=== PATIENT | female | born 2000 | race Caucasian/White ===

== ENCOUNTER 2022-03-04 21:39 | Emergency (ER) | payer OTHER, SELFPAY ==
[2022-03-04 22:28] VITALS: BP 94/64; PULSE 82; RESP 18; TEMP 36.6; O2SAT 99
--- NOTE | 2022-03-04 23:35 | PC.NURSE ---
Patient approached triage desk and informed the RNs that she no longer wanted to be seen and that she was feeling better. Patient encouraged to stay for evaluation but declines. Encourged to returned if symptoms return or worsen. PIV removed and pressure dressing applied prior to dc.
== END 2022-03-04 23:35 | disposition left against medical advice (07) ==
LOC: ANHED 23:54
DX: R42 Dizziness and giddiness (principal)
CPT/HCPCS: 99199

== ENCOUNTER 2022-03-23 00:36 | Emergency (ER) | payer OTHER, SELFPAY | END 2022-03-23 00:40 | disposition left against medical advice (07) | DX: Z53.21 Procedure and treatment not carried out due to patient leaving prior to being seen by health care provider (principal) | CPT/HCPCS: 99199 ==

== ENCOUNTER 2022-05-11 02:12 | Emergency (ER) | payer OTHER, SELFPAY ==
[2022-05-11 02:17] VITALS: BP 121/72; PULSE 105; RESP 18; TEMP 36.6; O2SAT 100
--- NOTE | 2022-05-11 05:05 | PC.NURSE ---
Pt called to be taken back to a room but did not answer.
== END 2022-05-11 05:05 | disposition left against medical advice (07) ==
LOC: ANHED 05:08
DX: R51.9 Headache, unspecified (principal); J02.9 Acute pharyngitis, unspecified; R09.89 Other specified symptoms and signs involving the circulatory and respiratory systems
CPT/HCPCS: 99199

== ENCOUNTER 2024-09-05 19:53 | Emergency (ER) | payer OTHER, SELFPAY ==
--- OUTSIDE RECORDS SUMMARY | 2024-09-05 19:56 | XMS_ITS | Continuity of Care Document ---
Author Organization [facility] Address [address] [place] [address] Phone Care Team Providers Care Developmental Therapist Name Role Phone Laura Stone Unavailable Unavailable Procedures Procedure Date Eye Exam & Treatment Refraction Advance Directives Directive Yes / No Effective Date File Name No Information Encounters Encounter Description Practice Location Reason(s) For Visit Diagnoses Date Provider Providers Copied on Encounter [facility], [address], [place], [place], [id number], [place] tel:[phone] [facility] No Information [address] , [address], [place], [address], [place]. tel:[phone] Family History Family Member Type Diagnosis Age At Onset No Information Payers Payer name Insurance type Covered green party ID Authoriza tibrenna(s) Medicaid [employer] [id number] Social History Type Description Quantity Date Captured Comments Sex Female Smoking Status No Information Chief Complaint And Reason For Visit No Information Reason For Referral Reason For Referral No Information History Of Present Illness Encounter Date Complaint History Of Prese nt Illness No Information Functional Status Date Functional Assessmen t No Information Instructions Date Instruction Additional Infor mation No Information Assessments Type Assessment Date No Information Patient Care Teams Name Effective Dates (start - stop) Status Members No Information
--- OUTSIDE RECORDS SUMMARY | 2024-09-05 19:56 | XMS_ITS | Encounter Summary ---
Author Organization [facility] Address [address] [place] [address] Care Team Providers Care Radiation Therapy Technician Name Role Phone Eduardo Powell MD Primary Care Provider [phone] None, Provider Primary Care Provider Temitope calvillo Encounter Details Date Type Department Care Team (Late st Contact Info) Description 09/25/2021 Hospital Follow-up Call [facility] [place] [address] Danyelle Henning, RN Social History Tobacco Use Types Packs/Day Years Used Date Smoking Tobacco: Never Smokeless Tobacco: Never Alcohol Use Standard Drinks/Week Comments No 0 (1 standard drink = 0.6 oz pur e alcohol) AUDIT-C Answer Date Recorded Frequency of Alcohol Consumption Never 11/11/2018 Average Number of Drinks Not on file 019 Frequency of Binge Drinking Not on file 10/30 Comments Yes Sex and Gender Information Value Date Recorded Sex Assigned at Not on file Legal Sex Female 12:58 PM VEGETABLE SCULLION Gender Identity Not on file Sexual Orientation Not on file COVID-19 Exposure Response Date Recorded In the last 10 days, have yo u been in contact with someone who was confirmed or suspected to have Coronavirus/COVID-19? Unable to assess 09/24/2021 7:31 AM CDT documented as of this encounter Plan of Treatment Not on file documented as of this encounter Visit Diagnoses Not on filedocumented in this encounter Additional Health Concerns Infection Onset Date Last Indicated Resolved Time COVID-19 Rule Out 06/04/2023 06/04/2023 06/04/2023 3:12 AM VEGETABLE SCULLION Influenza - Seasonal 06/04/2023 06/04/2023 024 12:32 AM VEGETABLE SCULLION documented as of this encounter Care Teams Radiation Therapy Technician Relationship Specialty Start Date End Date Eduardo Powell MD [address] [facility] [address] [place] [address] PCP - General FAMILY PRACTICE 07/22/18 03/05/22 None, Provider, PCP - General 03/06/22 documented as of this encounter
--- OUTSIDE RECORDS SUMMARY | 2024-09-05 19:56 | XMS_ITS | Clinical Summary ---
Author Organization [facility] Address [address] [place] [address] Care Team Providers Care Coding Quality Analyst Name Role Phone Unavailable Primary Care Provider Unavailabl e Source Comments [facility],non-owned Affiliates and Associated Physician Practices is amultiple site organization consisting of ambulatory clinics and hospital sitesin [place], [place], [place] and [place]. This disclosure is being madepursuant to the Care Everywhere program and may not contain all information available regarding this patient. Last updated 18.[facility] Allergies Active Allergy Reactions Criticality Noted Date Comments Bee 12/26/2013 Fingers swell, skin turns red Medications * Be aware that medications may not be up to date on this document. Alwaysverify current medications with the patient. Medication Sig Dispensed Refills Start Date End Date Status ferrous sulfate 325 (65 FE) MG tablet Take 1 tablet by mouth daily with food 30 tablet 09/19/2017 Active Additional Information Patient not taking.Reported on 09/19/2020 acetaminophen (TYLENOL) 500 MG tablet Take 1 tablet by mouth every 4 hours as needed for Fever or Pain Maximum allowable Acetaminophen amount = 4 Grams (4000 mg) / 24 hours. 30 tablet 09/19/2017 Active Additional Information Patient not taking.Reported on 09/19/2020 ibuprofen (Motrin) 600 MG tablet Take 1 (one) tablet by mouth every 6 hours as needed for Pain 30 tablet 04/17/2022 Active Active Problems Problem Noted Date Diagnosed Date Depression 08/16/2014 Poor social situation- 08/16/2014 Overview (08/16/2014): In a's custody. Mom unable to care for her. Estimated Date of Delivery Comme nts Yes 04/01/2021 Immunizations Name Administration Dates Next Due DTaP VACCINE IM (6wk-6yrs) 01/20/2007,,06/23/2003, 3,01/25/2003 HEP A PEDS 2 DOSE 04/10/2009,01/24/2008 HEP B VACCINE, PED/ADOL 10/25/2003,03/29/2003, HIB-PRP-OMP 3 DOSE 10/25/2003,03/29/2003, 003 INFLUENZA VACCINE 05/28/2009,04/25/2009,03/31/20 08 MENINGOCOCCAL ACWY (MCV4P) VAC IM 12/26/2013 MMR 01/20/2007,10/25/2003 PNEUMOCOCCAL PCV7 CONJ, PEDS 04/08/2004, 06/23/2003,03/29/2003, 3 POLIO IPV 01/20/2007, 4,03/29/2003, 3 TDAP (7yrs+) 12/26/2013 VARICELLA 01/20/2007,01/03/2004 Family History Medical History Relation Name Comments Migraine Father Cancer Maternal Grandfather Hypercholesterolemia Mother Diabetes Paternal Grandfather Heart Failure Paternal Grandfather Relation Name Status Comments Father Maternal Grandfather Mother Paternal Grandfather Social History Tobacco Use Types Packs/Day Years Used Date Smoking Tobacco: Never Smokeless Tobacco: Never Alcohol Use Standard Drinks/Week Comments No 0 (1 standard drink = 0.6 oz pur e alcohol) Estimated Date of Delivery Comme nts Yes 04/01/2021 Sex and Gender Information Value Date Recorded Sex Assigned at Not on file Gender Identity Not on file Sexual Orientation Not on file Last Filed Vital Signs Vital Sign Reading Time Taken Comments Blood Pressure 120/75 05/14/2022 8:16 AM QUANTITATIVE ANALYST Pulse 100 05/14/2022 8:16 AM QUANTITATIVE ANALYST Temperature 36.2 C (97.1 F) 05/14/2022 3:03 AM QUANTITATIVE ANALYST Respiratory Rate 18 05/14/2022 8:16 AM QUANTITATIVE ANALYST Oxygen Saturation 97% 05/14/2022 8:16 AM QUANTITATIVE ANALYST Inhaled Oxygen Concentration - - Weight 76.2 kg (168 lb) 04/16/2022 6:32 PM QUANTITATIVE ANALYST Height 157.5 cm (5' 2 ) 04/16/2022 6:32 PM QUANTITATIVE ANALYST Body Mass Index 30.73 04/16/2022 6:32 PM QUANTITATIVE ANALYST Plan of Treatment Health Maintenance Due Date Last Done Comments PAP SMEAR 2002 HIV SCREENING 2017 HPV VACCINE (1 - 3-dose series) 2017 MENINGOCOCCAL (Group B) VACCINE SHARED DECISION-MAKING (1 of 2 - Standard) 2018 HEPATITIS C SCREENING 09/21/2020 OB-ONE HOUR GLUCOSE 12/24/2020 OB-TDAP CURRENT 12/31/2020 12/26/2013 OB-RHOGAM INJECTION 01/07/2021 OB-GROUP B STREP SCREEN 02/25/2021 CHLAMYDIA/GONORRHEA SCREENING 09/22/2022 09/22/2021, 09/20/2021, 09/19/2020 DTAP/TDAP/TD VACCINES (7 - Td or Tdap) 12/27/2023 12/26/2013, 01/20/2007, 01/03/2004, Additional history exists COVID-19 VACCINE ( - season) 2024 DEPRESSION SCREENING 06/01/2024 INFLUENZA VACCINE (Season Ended) 2025 07/22/2018, 05/28/2009, 04/25/2009, Additional history exists ZOSTER VACCINE (1 of 2) 2052 Respiratory Syncytial Virus (RSV) Vaccine Pt: or over 60 yrs (1 - 1-dose 75+ series) 2077 HEPATITIS B VACCINE Completed 10/25/2003, 03/29/2003, 01/25/2003 HIB VACCINE Completed 10/25/2003, 03/02, 01/25/2003 PNEUMOCOCCAL VACCINE Completed 04/08/2004, 06/23/2003, 03/29/2003, Additional history exists MENINGOCOCCAL GROUPS A/C/Y/W VACCINE Aged Out 12/26/2013 No longer eligible based on patient's age to complete this topic Procedures Procedure Name Priority Date/Time Associated Diagnosis Comments CHLAMYDIA + GC AMPLIFIED PROBE STAT 09/19/2020 4:14 PM CDT from Last 3 Months or Most Recently Relevant to Health Maintenance Results * CHLAMYDIA + GC AMPLIFIED PROBE (STL) (09/19/2020 4:14 PM CDT) Chlamydia Amplified Probe Negative Negative 09/19/2020 11:58 PM CDT [facility] GC Amplified Probe Negative Negative 09/19/2020 11:58 PM CDT [facility] Microbiology URINE / Unknown Collection / Unknown 09/19/2020 4:14 PM CDT 09/19/2020 4:18 PM CDT Narrative [facility] - 09/19/2020 11:58 PM CDT Results based on detection/no detection of ribosomal RNA by amplified method. Jamie El MD LAB - MICROBIO LOGY ORDERABLES [facility] [address] [place] [address], [facility] [phone] from Last 3 Months or Most Recently Relevant to Health Maintenance BRIT NICHOLSON Personal/Famil y 2000 [address] [place] [address]
--- OUTSIDE RECORDS SUMMARY | 2024-09-05 19:56 | XMS_ITS | Encounter Summary ---
Author Organization [facility] Address [address] [place] [address] Care Team Providers Care Storehouse Clerk Name Role Phone Eduardo Powell MD Primary Care Provider [phone] None, Provider Primary Care Provider Temitope calvillo Encounter Details Date Type Department Care Team (Late st Contact Info) Description 09/25/2021 Hospital Follow-up Call [facility] Women [place] [address] Danyelle Henning, RN Social History Tobacco Use [...] on file Legal Sex Female 12:58 PM WASTEWATER ENGINEER Gender Identity Not on file Sexual Orientation [...] Rule Out 06/04/2023 06/04/2023 06/04/2023 3:12 AM WASTEWATER ENGINEER Influenza - Seasonal 06/04/2023 06/04/2023 024 12:32 AM WASTEWATER ENGINEER documented as of this encounter Care Teams Storehouse Clerk Relationship Specialty Start Date End Date Eduardo Powell MD [address] [facility] [address] [place] [address] PCP - General FAMILY PRACTICE 07/22/18 03/05/22 None, Provider, PCP - General 03/06/22 documented as of this encounter
--- OUTSIDE RECORDS SUMMARY | 2024-09-05 19:56 | XMS_ITS | Clinical Summary ---
Author Organization [facility] Address [facility] [place] [address] Care Team Providers Care Aviation Maintenance Instructor Name Role Phone None, Provider MD Primary Care Provider Unavaila ble Allergies Active Allergy Reactions Criticality Noted Date Comments Bee Venom Anaphylaxis High 12/26/2013 Fingers swell, skin turns red Medications Hrhehssb-Dl-Bfeszs fol-FA-DHA (PNV-DHA PLUS OR) Ac tive cyclobenzaprine 5 MG tablet Take 1 tablet (5 mg total) by mouth 2 (two) times daily as needed for Muscle Spasms. 10 tablet 2 Active ondansetron 8 MG disintegrating tablet Take 1 tablet (8 mg total) by mouth every 8 (eight) hours as needed. 20 tablet 2 Active tamsulosin 0.4 MG Cap Take 1 capsule (0.4 mg total) by mouth daily with supper. 3 capsule 2 Active clotrimazole 1 % cream Apply topically 2 (two) times daily. Apply topically 2 (two) times daily to affected area 12 g 2 Active ferrous sulfate, 65 mg elemental, (FEROSUL) 325 (65 FE) MG tablet Take 1 tablet (325 mg total) by mouth daily. 30 tablet 2 Active Active Problems Problem Noted Date Diagnosed Date Left flank pain 09/21/2021 Flank pain 09/17/2021 Anemia 07/22/2018 Immunizations Name Administration Dates Next Due Fluzone 6 Months+ Quad (0.5 mL Prefilled Syringe ) 07/22/2018 HPV GARDASIL 9-VALENT 07/22/2018 Family History Medical History Relation Comments Depression Father Depression Mother Relation Status Comments Father Alive Mother Alive Social History Tobacco Use Types Packs/Day Years Used Date Smoking Tobacco: Never Smokeless Tobacco: Never Alcohol Use Standard Drinks/Week Comments No 0 (1 standard drink = 0.6 oz pur e alcohol) AUDIT-C Answer Date Recorded Frequency of Alcohol Consumption Never 11/11/2018 Average Number of Drinks Not on file 019 Frequency of Binge Drinking Not on file 10/30 Comments No Sex and Gender Information Value Date Recorded Sex Assigned at Not on file Legal Sex Female 12:58 PM TOURING PRODUCTION MANAGER Gender Identity Not on file Sexual Orientation Not on file Last Filed Vital Signs Vital Sign Reading Time Taken Comments Blood Pressure 123/84 06/04/2023 1:44 AM TOURING PRODUCTION MANAGER Pulse 102 06/04/2023 1:44 AM TOURING PRODUCTION MANAGER Temperature 36.3 C (97.3 F) 06/04/2023 1:44 AM TOURING PRODUCTION MANAGER Respiratory Rate 18 06/04/2023 1:44 AM TOURING PRODUCTION MANAGER Oxygen Saturation 100% 06/04/2023 1:44 AM TOURING PRODUCTION MANAGER Inhaled Oxygen Concentration - - Weight 80.4 kg (177 lb 4 oz) 06/04/2023 1:44 AM TOURING PRODUCTION MANAGER Height 160 cm (5' 3 ) 06/04/2023 1:44 AM TOURING PRODUCTION MANAGER Body Mass Index 31.4 06/04/2023 1:44 AM TOURING PRODUCTION MANAGER Plan of Treatment Health Maintenance Due Date Last Done Comments Meningococcal B Vaccine (1 of 2 - Standard) 2018 Annual Physical 07/22/2019 07/22/2018 Chlamydia Screening Females ages 16-24 12/09/2022 12/09/2021, 09/19/2020 COVID-19 Vaccine ( season) 2024 Cervical Cancer Screening Pap Smear (Age 21 to 29) Every 3 Years 12/09/2024 12/09/2021, 12/09/2021, 09/19/2020 Cervical Cancer Screening 12/09/2024 DTaP, Tdap and Td Vaccines (8 - Td or Tdap) 02/26/2030 02/27/2020, 12/26/2013, 01/20/2007, Additional history exists Hepatitis B Vaccines Completed 10/25/2003, 10/25/2003, 03/29/2003, Additional history exists Pneumococcal Vaccine: Pediatrics (0 to 5 Years) and At-Risk Patients (6 to 64 Years) Aged Out 04/08/2004, 06/23/2003, 03/29/2003, Additional history exists No longer eligible based on patient's age to complete this topic Meningococcal Vaccine Aged Out 12/26/2013 No kacey marta eligible based on patient's age to complete this topic HPV Vaccines Completed 07/22/2018, 12/25/2016 Hepatitis C Completed 11/25/2018, 07/22/2018 RSV Immunizations Under 20 Months Aged Out No longer eligible based on patient's age to complete this topic Procedures Procedure Name Priority Date/Time Associated Diagnosis Comments HEPATITIS PANEL,ACUTE Routine 11/25/2018 3:00 PM CDT Screening examination for STD (sexually transmitted disease) from Last 3 Months or Most Recently Relevant to Health Maintenance Results * HEPATITIS PANEL,ACUTE (11/25/2018 3:00 PM CDT) HEPATITIS B SURFACE AG NON-REACTI VE NON-REACTI VE 11/25/2018 8:41 PM CDT [facility] HEP B CORE IGM NON-REACTI VE NON-REACTI VE 11/25/2018 8:41 PM CDT [facility] HAV IGM NON-REACTI VE NON-REACTI VE 11/25/2018 8:41 PM CDT [facility] HEPATITIS C AB NON-REACTI VE NON-REACTI VE 11/25/2018 8:41 PM CDT [facility] 11/25/2018 3:00 PM CDT us Estefany Tapia DO LABORATORY Final Result [facility] [address] [place] [address], [place] [phone] from Last 3 Months or Most Recently Relevant to Health Maintenance Insurance [facility]ICA[facility] Advance Directives Documents on File Type Date Recorded Patient Drafter Structural Expl anation Legal Documents 06/15/2018 DCFS PLACEME NT * Full Code (Latest Code Status on File) Date Activated Date Inactivated Comments 09/21/2021 1:00 AM 09/24/2021 3:00 PM * Full Code Date Activated Date Inactivated Comments 09/17/2021 5:16 PM 09/17/2021 8:08 PM Care Teams Aviation Maintenance Instructor Relationship Specialty Start Date End Date None, Provider, PCP - General 03/06/22
[2024-09-05 20:20] VITALS: BP 109/73; PULSE 68; RESP 14; TEMP 36.9; O2SAT 97
--- NOTE | 2024-09-05 21:40 | PC.NURSE ---
Patient deciding that she is leaving and will follow up with her PMD
--- OUTSIDE RECORDS SUMMARY | 2024-09-05 21:45 | XMS_ITS | Clinical Summary ---
Author Organization [facility] Address [address] [place] [address] Care Team Providers Care Dry Cleaning Supervisor Name Role Phone Unavailable Primary Care Provider Unavailabl e Source Comments [facility],non-owned Affiliates and Associated Physician Practices is amultiple site organization consisting of ambulatory clinics and hospital sitesin [place], [place], [place] and [place]. This disclosure is being madepursuant to the Care Everywhere program and may not contain all information available regarding this patient. Last updated 18.[facility] Allergies Active Allergy Reactions Criticality Noted Date [...] Comments Blood Pressure 120/75 05/14/2022 8:16 AM OVERHEAD CRANE TECHNICIAN Pulse 100 05/14/2022 8:16 AM OVERHEAD CRANE TECHNICIAN Temperature 36.2 C (97.1 F) 05/14/2022 3:03 AM OVERHEAD CRANE TECHNICIAN Respiratory Rate 18 05/14/2022 8:16 AM OVERHEAD CRANE TECHNICIAN Oxygen Saturation 97% 05/14/2022 8:16 AM OVERHEAD CRANE TECHNICIAN Inhaled Oxygen Concentration - - Weight 76.2 kg (168 lb) 04/16/2022 6:32 PM OVERHEAD CRANE TECHNICIAN Height 157.5 cm (5' 2 ) 04/16/2022 6:32 PM OVERHEAD CRANE TECHNICIAN Body Mass Index 30.73 04/16/2022 6:32 PM OVERHEAD CRANE TECHNICIAN Plan of Treatment Health Maintenance Due Date [...] Probe Negative Negative 09/19/2020 11:58 PM CDT [facility] GC Amplified Probe Negative Negative 09/19/2020 11:58 PM CDT [facility] Microbiology URINE / Unknown Collection / Unknown 09/19/2020 4:14 PM CDT 09/19/2020 4:18 PM CDT Narrative [facility] - 09/19/2020 11:58 PM CDT Results based on detection/no detection of ribosomal RNA by amplified method. Jamie El MD LAB - MICROBIO LOGY ORDERABLES [facility] [address] [place] [address], [facility] [phone] from Last 3 Months or Most Recently Relevant to Health Maintenance BRIT NICHOLSON Personal/Famil y 2000 [address] [place] [address]
--- OUTSIDE RECORDS SUMMARY | 2024-09-05 21:45 | XMS_ITS | Encounter Summary ---
Author Organization [facility] Address [address] [place] [address] Care Team Providers Care Facilities Engineering Manager Name Role Phone Eduardo Powell MD Primary Care Provider [phone] None, Provider Primary Care Provider Temitope calvillo Encounter Details Date Type Department Care Team (Late st Contact Info) Description 09/25/2021 Hospital Follow-up Call [facility] [place] [address] Danyelle Henning, RN Social History Tobacco Use [...] on file Legal Sex Female 12:58 PM WATERSIDE WORKER Gender Identity Not on file Sexual Orientation [...] Rule Out 06/04/2023 06/04/2023 06/04/2023 3:12 AM WATERSIDE WORKER Influenza - Seasonal 06/04/2023 06/04/2023 024 12:32 AM WATERSIDE WORKER documented as of this encounter Care Teams Facilities Engineering Manager Relationship Specialty Start Date End Date Eduardo Powell MD [address] [facility] [address] [place] [address] PCP - General FAMILY PRACTICE 07/22/18 03/05/22 None, Provider, PCP - General 03/06/22 documented as of this encounter
--- OUTSIDE RECORDS SUMMARY | 2024-09-05 21:45 | XMS_ITS | Encounter Summary ---
Author Organization [facility] Address [address] [place] [address] Care Team Providers Care Job Foreman Name Role Phone Eduardo Powell MD Primary Care Provider [phone] None, Provider Primary Care Provider Temitope calvillo Encounter Details Date Type Department Care Team (Late st Contact Info) Description 09/25/2021 Hospital Follow-up Call [facility] [place] [address] Danyelle Henning, RN Social History Tobacco Use [...] on file Legal Sex Female 12:58 PM CODE ENFORCEMENT SUPERVISOR Gender Identity Not on file Sexual Orientation [...] Rule Out 06/04/2023 06/04/2023 06/04/2023 3:12 AM CODE ENFORCEMENT SUPERVISOR Influenza - Seasonal 06/04/2023 06/04/2023 024 12:32 AM CODE ENFORCEMENT SUPERVISOR documented as of this encounter Care Teams Job Foreman Relationship Specialty Start Date End Date Eduardo Powell MD [address] [facility] [address] [place] [address] PCP - General FAMILY PRACTICE 07/22/18 03/05/22 None, Provider, PCP - General 03/06/22 documented as of this encounter
--- OUTSIDE RECORDS SUMMARY | 2024-09-05 21:45 | XMS_ITS | Clinical Summary ---
Author Organization [facility] Address [facility], [facility] [place] [address] Care Team Providers Care Boat Canvas Installer Name Role Phone None, Provider MD Primary Care Provider Unavaila ble Allergies Active Allergy Reactions Criticality Noted Date Comments Bee Venom Anaphylaxis High 12/26/2013 Fingers swell, skin turns red Medications Viqgpccq-Dp-Retlmb fol-FA-DHA (PNV-DHA PLUS OR) Ac tive cyclobenzaprine [...] on file Legal Sex Female 12:58 PM PRODUCTION ASSISTANT Gender Identity Not on file Sexual Orientation Not on file Last Filed Vital Signs Vital Sign Reading Time Taken Comments Blood Pressure 123/84 06/04/2023 1:44 AM PRODUCTION ASSISTANT Pulse 102 06/04/2023 1:44 AM PRODUCTION ASSISTANT Temperature 36.3 C (97.3 F) 06/04/2023 1:44 AM PRODUCTION ASSISTANT Respiratory Rate 18 06/04/2023 1:44 AM PRODUCTION ASSISTANT Oxygen Saturation 100% 06/04/2023 1:44 AM PRODUCTION ASSISTANT Inhaled Oxygen Concentration - - Weight 80.4 kg (177 lb 4 oz) 06/04/2023 1:44 AM PRODUCTION ASSISTANT Height 160 cm (5' 3 ) 06/04/2023 1:44 AM PRODUCTION ASSISTANT Body Mass Index 31.4 06/04/2023 1:44 AM PRODUCTION ASSISTANT Plan of Treatment Health Maintenance Due Date [...] VE NON-REACTI VE 11/25/2018 8:41 PM CDT [facility] HEP B CORE IGM NON-REACTI VE NON-REACTI VE 11/25/2018 8:41 PM CDT [facility] HAV IGM NON-REACTI VE NON-REACTI VE 11/25/2018 8:41 PM CDT [facility] HEPATITIS C AB NON-REACTI VE NON-REACTI VE 11/25/2018 8:41 PM CDT [facility] 11/25/2018 3:00 PM CDT us Estefany Tapia DO LABORATORY Final Result [facility] [address] [place] [address], [place] [phone] from Last 3 Months or Most Recently Relevant to Health Maintenance Insurance [facility]ALTH[facility]ICE [facility]ICAID [facility] Advance Directives Documents on File Type Date Recorded Patient Principal Quality Engineer Expl anation Legal Documents 06/15/2018 DCFS PLACEME NT * Full Code (Latest Code Status on File) Date Activated Date Inactivated Comments 09/21/2021 1:00 AM 09/24/2021 3:00 PM * Full Code Date Activated Date Inactivated Comments 09/17/2021 5:16 PM 09/17/2021 8:08 PM Care Teams Boat Canvas Installer Relationship Specialty Start Date End Date None, Provider, PCP - General 03/06/22
--- OUTSIDE RECORDS SUMMARY | 2024-09-05 21:45 | XMS_ITS | Continuity of Care Document ---
Author Organization [facility] Address [address] [place] [address] Phone Care Team Providers Care Loader Unloader Name Role Phone Laura Stone Unavailable Unavailable Procedures Procedure Date Eye Exam & Treatment Refraction Advance Directives Directive Yes / No Effective Date File Name No Information Encounters Encounter Description Practice Location Reason(s) For Visit Diagnoses Date Provider Providers Copied [facility] [address] [place], [place], [id number], [place] tel:[phone] [facility] No Information [address] , [address], [place], [address], [place]. tel:[phone] Family History Family Member Type Diagnosis Age At Onset No Information Payers Payer name Insurance type Covered alliance party ID Authoriza tibrenna(s) Medicaid [facility] [id number] Social History Type Description Quantity Date Captured [...]
== END 2024-09-05 21:40 | disposition left against medical advice (07) ==
DX: O26.891 Other specified pregnancy related conditions, first trimester (principal); R10.9 Unspecified abdominal pain; Z3A.08 8 weeks gestation of pregnancy
CPT/HCPCS: 99199